=== PATIENT | female | born 1945 | race Caucasian/White ===

== ENCOUNTER → 2019-01-01 15:26 | Outpatient (CLI) | payer OTHER, SELFPAY ==
--- NOTE | 2019-01-01 15:28 | DI.MG.S_ITS ---
BILATERAL DIGITAL SCREENING MAMMOGRAM 3D/2D WITH CAD: 01/01/2019 CLINICAL: Routine screening. Comparison is made to exams dated: 03/01/2017 mammogram, 02/07/2015 mammogram, and 01/31/2015 mammogram - [facility]. The tissue of both breasts is heterogeneously dense. This may lower the sensitivity of mammography. Current study was also evaluated with a Computer Aided Detection (CAD) system. There are benign calcifications in both breasts. No significant masses, calcifications, or other findings are seen in either breast. There has been no significant interval change. IMPRESSION: There is no mammographic evidence of malignancy. A 1 year screening mammogram is recommended. This exam was interpreted at Station ID: [id number]. NOTE: For mammograms, a report in lay terms will be sent to the patient. Approximately 15% of breast malignancies will not be visualized mammographically. In the management of a palpable breast mass, a negative mammogram must not discourage biopsy of a clinically suspicious lesion. Electronically Signed By: Josh ochoa/conchis:01/01/2019 17:27:32 letter sent: Normal Exam ACR BI-RADS Category 2: Benign Finding(s) 3342F
== END ==
PROVIDERS: PCP Family Medicine; Visit Provider Family Medicine
DX: Z12.31 Encounter for screening mammogram for malignant neoplasm of breast (principal)
CPT/HCPCS: 77063; 77067

== ENCOUNTER → 2019-04-26 13:50 | Outpatient (CLI) | payer OTHER, SELFPAY ==
--- NOTE | 2019-04-26 13:52 | DI.RAD.S_ITS ---
PROCEDURE: XR FOOT RT MIN 3V INDICATIONS: right foot pain TECHNIQUE: 3 views of the foot were acquired. COMPARISON: None. FINDINGS: Bones: No fractures or dislocations. No suspicious bony lesions. The distal phalanges of the toes are not well seen on this study. Mild degenerative changes are present involving the 1st metatarsal phalangeal joint. Soft tissues: No tibiotalar joint effusion. Achilles tendon appears normal. IMPRESSION: Mild degenerative changes of the right foot. No fractures. Dictated by: Claudio Landry M.D. on 04/26/2019 at 14:44 Approved by: Claudio Landry M.D. on 04/26/2019 at 14:47
--- NOTE | 2019-04-26 13:52 | DI.MRI.S_ITS ---
PROCEDURE: MR KNEE LT WO CON INDICATIONS: Lateral left knee pain TECHNIQUE: Noncontrast sagittal PD fast spin echo and T2 fast spin echo with fat saturation, sagittal 3-D FLASH with fat saturation; coronal T1 spin echo and PD fast spin echo with fat saturation, and axial PD fast spin echo with fat saturation through the knee. COMPARISON: [facility], MR, KNEE WITHOUT CONTRAST, 03/04/2015, 7:52. FINDINGS: Image quality: Diagnostic. Bones and joint: There is no acute fracture or dislocation. No suspicious osseous lesions are evident. No significant knee joint effusion is identified. There is no Ayala's cyst. Heterogeneity and mild irregularity of the head articular cartilage is identified within the lateral and patellofemoral compartments. Small to moderate size full thickness defects of the hyaline articular cartilage are present with underlying degenerative/reactive marrow changes. Cruciate ligaments: The anterior and posterior cruciate ligaments are intact. However, the anterior cruciate ligament is enlarged and demonstrates mild increased signal. Menisci: No displaced tears of the medial and lateral menisci are evident. The posterior root ligaments are intact. Medial structures: The medial collateral ligament is intact. The semimembranosus tendon insertion is intact. The imaged portions of the pes anserinus tendons are unremarkable. No significant fluid is contained within the pes anserinus bursa. Lateral structures: The popliteal tendon is intact. The lateral collateral ligament proper (fibular collateral ligament) and the proximal tibiofibular ligaments are intact. The distal aspect of the biceps femoris tendon and the iliotibial band are intact. Anterior structures: The quadriceps and patellar tendons are intact. There is mild edema in the infrapatellar fat pad. IMPRESSION: 1. 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 2. Probable anterior cruciate ligament sprain. 3. No displaced meniscal tears are evident. 4. No definite tendinous abnormality. Dictated by: Claudio Landry M.D. on 04/26/2019 at 15:57 Approved by: Claudio Landry M.D. on 04/26/2019 at 16:01
== END ==
PROVIDERS: PCP Family Medicine; Visit Provider Family Medicine
DX: M25.562 Pain in left knee (principal); M94.262 Chondromalacia, left knee; M79.671 Pain in right foot; M19.071 Primary osteoarthritis, right ankle and foot
CPT/HCPCS: 73630; 73721

== ENCOUNTER 2019-11-27 09:34 | Day surgery (SDC) | payer OTHER, SELFPAY ==
[2019-11-27] VITALS (8 sets, daily range): BP systolic 112–146; BP diastolic 64–77; PULSE 67–84; RESP 12–16; TEMP 36.1–36.4; O2SAT 94–98
--- NOTE | 2019-11-27 | PATH_ITS ---
[facility] Accession Number: [id number] . 01 Material submitted: . PART A: colon - 40 CM COLON POLYP PART B: colon - CECAL AND ASCENDING POLYPS . 01 Clinical history: . SCREENING COLONOSCOPY . 02 Diagnosis: A. Colon Polyp at 40 cm, Biopsy: Tubular adenoma. . B. Cecum and Ascending Colon, Polyps, Biopsies: Fragments of tubular adenoma. [facility] 11/28/2019 0948 Local . 02 Electronically signed: . Jamie Erazo MD, PhD, Pathologist NPI- [id number] . 01 Gross description: . Part A: 40 CM COLON POLYP: Received in formalin are 2 fragment(s) of michel, soft tissue measuring 0.1 x 0.1 x 0.1 cm to 0.2 x 0.2 x 0.2 cm submitted entirely in 1 cassette(s) Part B: CECAL AND ASCENDING POLYPS: Received in formalin are 3 fragment(s) of michel, soft tissue measuring 0.1 x 0.1 x 0.1 cm to 0.3 x 0.2 x 0.2 cm submitted entirely in 1 cassette(s) /[facility] 11/27/2019 1910 Local . 02 Pathologist provided ICD-10: D12.0, D12.2, D12.6 . 02 CPT . 960391, [id number] Performed at: 01 [facility] [address], [place], [place] [id number] MD Jeffrey Fuentes MD Phone: [phone] Performed at: 02 [facility] [address] [place], [place] [id number] MD Genet Lebron MD Phone: [phone]
[2019-11-27] MEDS: SODIUM CHLORIDE 0.9% 1,000 ML 200 ML IV (09:47)
--- NOTE | 2019-11-27 10:11 | PM.HP.1 ---
History of Present Illness History of Present Illness Date Patient Seen: 11/27/19 Time Patient Seen: 10:11 Chief complaint: [id number] SCREENING COLONOSCOPY Narrative: The patient is a woman here for screening colonoscopy. Her last exam was 5 years ago. She had a half brother of colon cancer at age 51. She only took 1 dose of her prep because she finished defecating at 1:00 a.m. and it was clear. Patient History Medical History Ankle fracture, right (Resolved 1967) Arthritis (Acute) Basal cell carcinoma (BCC) of skin of nose (Resolved 2005) Chicken pox (Resolved ~1956) Colon polyps (Resolved 04/2005) Fibroids (Resolved 2001) Foot pain (Chronic 2014) Herpes (Chronic 1974) Measles (Resolved ~1955) Mumps (Resolved) Precancerous skin lesion (Resolved) Rheumatic fever (Resolved 1949) Tubular adenoma of colon (Resolved 04/2005) Wears glasses (Acute) Surgical History Anesthesia (Resolved) History of basal cell carcinoma (BCC) excision (Resolved 2005) History of colonoscopy with polypectomy (Resolved 04/2005) History of episiotomy (Resolved 1964) History of hip replacement (Resolved 08/30/12) History of tonsillectomy (Resolved) Status post hysterectomy (Resolved 2001) Status post knee surgery (Resolved 04/14/15) Family & Social History Family History Brother Colon cancer Type 2 diabetes mellitus Sister Age: 79 Non-Hodgkins lymphoma Grandmother Stroke Mother Diabetes mellitus Stroke Family/Other Drowning Father Cirrhosis of liver Social History: household members family lives independently Yes caregiver/support person No Tobacco & Substance use: Smoking Status Never smoker alcohol intake current Meds Home Medications and Allergies Home Medications Medication Instructions Recorded Confirmed Type pantoprazole 20 mg tablet,delayed 20 mg PO DAILY PRN 01/31/19 11/27/19 History release meclizine 12.5 mg tablet See Rx Instructions PO TID PRN #30 06/08/19 11/27/19 Rx tab acyclovir 400 mg PO TIDP PRN 11/27/19 11/27/19 History Allergies Allergy/AdvReac Type Severity Reaction Status Date / Time codeine [CODEINE] AdvReac Mild nausea & Verified 11/27/19 09:54 terrible nightmares hydrocodone [HYDROCODONE] AdvReac Mild Nausea/vomi Verified 11/27/19 09:54 ting oxycodone AdvReac Mild Vomiting Verified 11/27/19 09:54 Review of Systems Review of Systems ROS Unobtainable: All systems reviewed & are unremarkable except as noted in HPI and below Cardiovascular Comments: History of rheumatic fever as a child Exam Narrative Exam Narrative: Pleasant cooperative patient no apparent distress. Lungs are clear to auscultation. No rales or rhonchi. Heart regular rate and rhythm no murmur gallop. Abdomen is soft nontender without mass. No obvious hernias. Patient is alert and oriented x3. Assessment & Plan Assessment & Plan narrative: The patient for a screening colonoscopy. I have discussed the procedure with them. Risks of bleeding, perforation which would necessitate major operation, failure to find remove all lesions, the potential tattoo were all discussed. All questions were answered. They wished to proceed.
--- NOTE | 2019-11-27 10:15 | PM.PREOP ---
Pre-operative Note Interval Note History & Physical reviewed/Exam performed by Physician: Yes Changes to H&P: No H&P completed within 30 days and has changed as indicated here:: Patient reported she only took 1 of the 2 doses of bowel prep. I explained that hopefully that will be adequate but it may not be ASA Class (for procedural sedation): I
[2019-11-27] MEDS: ONDANSETRON 4 MG/2 ML INJ IV (10:16)
[2019-11-27] MEDS: fentaNYL 250 MCG/5 ML INJ IV (10:45)
[2019-11-27] MEDS: MIDAZOLAM 5 MG/5 ML VIAL IV (10:45)
--- NOTE | 2019-11-27 11:04 | PM.OP.ENDO ---
Operative Date/Time/Diagnoses Date of procedure: 11/27/19 Time of procedure: 11:04 Pre-op diagnosis: Family history of colon cancer Post-op diagnosis: same Procedure & Clinicians Study performed: Colonoscopy with cold biopsy Same procedure as scheduled: Yes Indications: Screening. Last colonoscopy 5 years ago Surgeon: Servando Thapa Procedure Notes SCOAP/Timeout: Performed Procedure in detail: The patient was placed in the left lateral decubitus position and underwent IV sedation directed by the surgeon consisting of fentanyl and Versed. Digital exam was unremarkable. The scope was inserted and advanced through the rectum into the sigmoid, descending, transverse, and ascending colon. The patient had extensive sigmoid diverticulosis with some narrowing. There was also tortuosity in this region. A stiffener and pressure had to be applied to ultimately make our way to the cecum. Three polyps were identified on our way into the cecum. These were all removed with cold biopsy forceps. They were located at 40 cm, and the other 2 were in the ascending colon and cecum and these were placed in the same specimen container. The cecum was reached identified by the ileocecal valve and the appendiceal opening. The ileocecal valve was successfully cannulated. The terminal ileum was normal in appearance. The scope was gradually brought out. No other Polyps were found. The scope ultimately was retroflexed in the rectum. The appearance was remarkable for internal hemorrhoids without ulceration. They were very near the anal verge.. The scope was slowly removed and the patient tolerated the procedure well. The prep was very good. Scope withdrawal time: 7-1/2 minutes Sedation minutes: 42 Findings: diverticulosis, internal hemorrhoids and polyp Specimen(s): other (Polyps) Complications: none Post-procedure Recommendations: Colonscopy in 5 years (Due to family history of colon cancer and personal history of polyps) Follow up: as needed Disposition: PACU
== END 2019-11-27 12:09 | disposition home or self-care (01) ==
PROVIDERS: PCP Family Medicine; Visit Provider Specialist
PROC: 0DJD8ZZ Inspection of Lower Intestinal Tract, Via Natural or Artificial Opening Endoscopic (ICD-10-PCS; CPT 45378; principal; 2019-11-27 10:45)
DX: Z12.11 Encounter for screening for malignant neoplasm of colon (principal); Z86.010 Personal history of colon polyps; Z80.0 Family history of malignant neoplasm of digestive organs; K57.30 Diverticulosis of large intestine without perforation or abscess without bleeding; K64.8 Other hemorrhoids; D12.0 Benign neoplasm of cecum; D12.2 Benign neoplasm of ascending colon; D12.6 Benign neoplasm of colon, unspecified
CPT/HCPCS: 45380; 99152; 99153; J2250; J2405; J3010

== ENCOUNTER → 2019-12-04 16:30 | Outpatient (CLI) | payer OTHER, SELFPAY ==
--- NOTE | 2019-12-04 16:32 | DI.RAD.S_ITS ---
PROCEDURE: XR ACUTE ABDOMEN SERIES INDICATIONS: abd pain ?fever distention post colonoscopy TECHNIQUE: One view chest and two views of the abdomen were acquired. COMPARISON: None. FINDINGS: Surgical changes and devices: Status post left total hip arthroplasty without hardware complication in the visualized portions. Chest: Lungs are clear. Heart size is normal. No pleural effusions. No pneumoperitoneum. Abdomen: Bowel gas pattern is normal. No suspicious calcifications. Visualized solid organ contours appear normal. Bones: No suspicious bony lesions. Sclerosis of the pubic symphysis bilaterally. Lower lumbar spondylosis. IMPRESSION: Negative acute abdominal series. Dictated by: Josh Rose M.D. on 12/04/2019 at 17:53 Approved by: Josh Rose M.D. on 12/04/2019 at 17:57
[2019-12-04 17:07] LABS: Add Manual Diff / Slide Review NO; Basophils Absolute Auto 0 /uL (0-100); Basophils Percent Auto 0.7 % (0-2); Eosinophils Absolute Auto 100 /uL (0-450); Hematocrit 40.2 % (36-46); Hemoglobin 13.7 g/dL (12.0-16.0); Lymphocytes Absolute Auto 1500 /uL (1100-4500); Lymphocytes Percent Auto 24.9 % (25-40); Mean Corpuscular HGB Conc 33.9 % (30-36); Mean Corpuscular Hemoglobin 29.2 PG (26-34); Mean Corpuscular Volume 86.1 fL (80-100); Monocytes Absolute Auto 500 /uL (0-900); Monocytes Percent Auto 8.4 % (3-14); Neutrophils Absolute Auto 3700 /uL (1500-7000); Platelet Count 277 X10^3/uL (150-400); Red Blood Cell Count 4.67 X10^6/uL (4.0-5.2); Red Cell Distribution Width 13.9 % (11.6-14.8); White Blood Cell Count 5.8 X10^3/uL (4.5-11.0)
== END ==
PROVIDERS: PCP Family Medicine; Visit Provider Specialist
DX: R10.9 Unspecified abdominal pain (principal); R14.0 Abdominal distension (gaseous); R19.7 Diarrhea, unspecified; M47.816 Spondylosis without myelopathy or radiculopathy, lumbar region; Z98.890 Other specified postprocedural states; Z96.642 Presence of left artificial hip joint
CPT/HCPCS: 36415; 74022; 85025; 99212

== ENCOUNTER → 2019-12-05 09:09 | Outpatient (CLI) | payer OTHER, SELFPAY ==
[2019-12-05 11:24] LABS: Adenovirus F 40/41 Not Detected (Not Detect); Astrovirus Not Detected (Not Detect); Campylobacter Not Detected (Not Detect); Clostridium difficile toxin AB Not Detected (Not Detect); Cryptosporidium Not Detected (Not Detect); Cyclospora cayetanensis Not Detected (Not Detect); Entamoeba histolytica Not Detected (Not Detect); Enteroaggregative E.coli Not Detected (Not Detect); Enteropathogenic E.coli Not Detected (Not Detect); Enterotoxigenic E.coli It/st Not Detected (Not Detect); Giardia lamblia Not Detected (Not Detect); Norovirus GI/GII Not Detected (Not Detect); Plesiomonsa shigelloides Not Detected (Not Detect); Rotavirus A Not Detected (Not Detect); Salmonella Not Detected (Not Detect); Sapovirus Not Detected (Not Detect); Shiga-like toxin-prod E.coli Not Detected (Not Detect); Shigella/Enteroinvasive E.coli Not Detected (Not Detect); Vibrio Not Detected (Not Detect); Vibrio cholerae Not Detected (Not Detect); Yersinia enterocolitica Not Detected (Not Detect)
== END ==
PROVIDERS: PCP Family Medicine; Visit Provider Specialist
DX: R10.9 Unspecified abdominal pain (principal); R14.0 Abdominal distension (gaseous); R19.7 Diarrhea, unspecified; Z98.890 Other specified postprocedural states
CPT/HCPCS: 87507

== ENCOUNTER 2020-04-30 13:45 | Outpatient (RCR) | payer OTHER, SELFPAY ==
--- NOTE | 2020-03-24 18:02 | PT.OIE ---
Current Diagnoses Pelvic muscle wasting (03/24/20) Unspecified dyspareunia (03/24/20) Past Medical History (Last Reviewed 12/04/19 @ 17:03 by Servando Thapa MD) Ankle fracture, right (Resolved 1967) Arthritis (Acute) Basal cell carcinoma (BCC) of skin of nose (Resolved 2005) Chicken pox (Resolved ~1956) Colon polyps (Resolved 04/2005) Fibroids (Resolved 2001) Foot pain (Chronic 2014) Herpes (Chronic 1974) Measles (Resolved ~1955) Mumps (Resolved) Precancerous skin lesion (Resolved) Rheumatic fever (Resolved 1949) Tubular adenoma of colon (Resolved 04/2005) Wears glasses (Acute) Past Surgical History (Last Reviewed 12/04/19 @ 17:03 by Servando Thapa MD) Anesthesia (Resolved) History of basal cell carcinoma (BCC) excision (Resolved 2005) History of colonoscopy with polypectomy (Resolved 04/2005) History of episiotomy (Resolved 1964) History of hip replacement (Resolved 08/30/12) History of tonsillectomy (Resolved) Status post hysterectomy (Resolved 2001) Status post knee surgery (Resolved 04/14/15) Visit Care Team Role Provider Type Henrietta Parry MD Primary Care Provider Physician Specialty: Family Practice Address: [address] [place] [address], [facility] Email: [email or web address] Leila Stewart MD Attending Provider Physician Referring Provider Specialty: [employer] Address: [address] [place] [address], [facility] Email: Physical Therapy Initial Evaluation PT-OP-A Visit Information Start: 03/24/20 12:46 Freq: Status: Active Protocol: Document 03/24/20 12:56 [facility] (Rec: 03/24/20 13:13 [facility] [id number]) Out-Patient Physical Therapy Visit Information Visit Information Visit Type Initial Evaluation Visit Start Time 13:00 Visit Stop Time 13:45 Total Visit Minutes 45 Visit Number 1 Evaluation Information Evaluation Date 03/24/20 PT-OP-B Current Condition Start: 03/24/20 12:46 Freq: Status: Active Protocol: Document 03/24/20 12:56 [facility] (Rec: 03/24/20 13:13 [facility] [id number]) Current Condition History of Current Condition Onset Date 40 years ago Current Complaints vaginal pain with intercourse History of Current Condition Yamilex reports she has been experiecing pain with intercourse since her hysterectomy 40 years ago. She has been using estodial x 3-4 weeks now but prefers Premerin so may switch back to that. Yamilex reports that her and her have custody of their 8 year old grand daughter. They dont have intercourse often due to this. She doesn't use the estrodial every day. Pt reports It feel like there is scar tissue and it gets raw inside the right side of the vagina at the front of the pubic bone. 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 Pain began following the hysteroctomy. In 2011 she had the left hip replaced and this did effect positions that felt more compfortable to her during intercourse. She currently walks 4.5 miles per day every week day. Treatment Goals Patient/Caregiver Goals Goals include helping to reduce pain enabling Yamilex to be intimate with her without pain. Current Functional Impairments (Reported) Functional Limitations- Recreation/ pain with intercourse, limited Hobbies ROM after her left hip replacement which limits positions for intercourse PT-OP-C Subjective Start: 03/24/20 12:46 Freq: Status: Active Protocol: Document 03/24/20 17:36 [facility] (Rec: 03/24/20 17:59 [facility] [id number]) OP-PT Pain Assessment Location anterior pelvic floor Pain Location Details pain in the anterior pelvic floor Intensity 8 Scale Used Numeric (1 - 10) Description Aching,Stabbing Description- Other Raw tissue feeling Pain Duration pain with intercourse Other Pain Aggravating Factors Pt expereinced 6/10 pain with palpation in the pelvic clock from 9-12 PT-OP-F Manual Assessment Start: 03/24/20 12:46 Freq: Status: Active Protocol: Document 03/24/20 17:36 [facility] (Rec: 03/24/20 17:59 [facility] [id number]) Manual Assessments Soft Tissue Assessment Soft Tissue Mobility Assessment scar tissue tightness noted on the right side of urethra and in the pubococcygeus on the right from 9-12 MFR in the suprapubic fascia on the right side with tenderness to palpation PT-OP-I Pelvic Floor Start: 03/24/20 12:46 Freq: Status: Active Protocol: Document 03/24/20 17:36 [facility] (Rec: 03/24/20 17:59 [facility] [id number]) Pelvic Floor Assessment Urine Pelvic Floor Surgery No Pelvic Clock Pelvic Clock 12-3 Atrophy Pelvic Clock 9-12 Guarding,Tenderness Contraction Ability Voluntary Contraction Moderate Voluntary Relaxation Moderate Manual Muscle Testing Left 3 Manual Muscle Testing Right 3 Manual Muscle Testing Anterior 2 Manual Muscle Testing Posterior 4 Muscle Endurance (Seconds) 5 PT-OP-J Posture/Palpation/Skin Start: 03/24/20 12:46 Freq: Status: Active Protocol: Document 03/24/20 17:36 [facility] (Rec: 03/24/20 17:59 [facility] [id number]) Palpation Assessment Location suprapubic fascia R Palpation Location right side of the suprapubic fascia Palpation Findings Soft Tissue Tightness, Tenderness Palpation Details Myofascial restrictions felt in the suprapubic fascia on the right side of the abdominal wall, tenderness here to palpation pelvic clock 9-12 Palpation Location pelvic clock 9-12 in the pubococcygeus Palpation Findings Spasm,Muscle Guarding, Tenderness PT-OP-Q Treatments Start: 03/24/20 12:46 Freq: Status: Active Protocol: Document 03/24/20 17:36 [facility] (Rec: 03/24/20 17:59 [facility] [id number]) Therapeutic Exercises Supine Exercises 1 Supine Exercise Name pelvic floor isolation with imagery of the anterior pelvci floor Side bilateral Reps/Minutes 5 second hold time with 10 second relaxation Self-Care/Home Management Treatment Education Patient Education Home Exercise Program Other Education Yamilex was given a size medium dilator today and was educated in self massage of the right lateral wall of the pubococcygeus. Special care was given to avoid the area of the urethra and Yamilex understood this well. She was also educted to keep this massage to 2-3 minutes to start with. She was also given information on Julva cream to use to help with tissue irritation as she is not using the estrogen cream every day. PT-OP-T Assessment and Plan Start: 03/24/20 12:46 Freq: Status: Active Protocol: Document 03/24/20 17:36 [facility] (Rec: 03/24/20 17:59 [facility] [email or web address]) Physical Therapy Assessment Rehab Potential Rehabilitation Potential Excellent Evaluation Complexity Number of Personal Factors/Comorbidities 0 Number of Body Systems Impaired 1-2 Clinical Presentation at Evaluation Stable Impairments Impairments Pain,Soft Tissue Mobility, Strength Goals Three Impairment Myofascial restrictions in the suprapubic fasica of the abdominal wall R Alf Goal (LTG) With manual therapy Yamilex is no longer tender to palpation over the right suprapubic fascia and R pubococcygeus musculature LTG Duration 8 weeks Two Impairment Guarding of the levator ani on the pelvic clock from 9-12 Short Term Goal (STG) Pt is educated in self release of the levator ani using a dilator and is able to reduce tension in the pelvci floor prior to intercourse STG Duration 4 weeks One Impairment anterior pelvic Pain with intercourse Spool Maker Goal (LTG) With self massage techniques, manual therpay techniques, stretches for the pelvic floor , and anterior wall strengthening Yamilex is able to decrease c/o pain with intercourse with her LTG Duration 8 weeks Assessment Summary Assessment Yamilex is a 75 year old female who presents to physical therapy today with symptoms of pain with intercourse that have been persistent since her hysterectomy at age 42. She underwent a L EDISON in 2011 and this has made certains positions more difficult to get into and she avoids certain positions because of her hip. Her pain is specific and Yamilex describes her pain as being right sided anterior pain on the inside region of her pubic bone. She notes her tissue will feel raw and is very painful with intercourse. With examination today I was able to palpate this painful region for her and reproduce her pain. She has pain from 9-12 on the pelvic clock with guarding in the right side of the pubocuccygeus. There is also some scar tissue on the right side of the urethra and palpation here was painful. Yamilex has tenderness in the suprapubic fascia on the right side and there are myofascial restrictions here as well. Her strength of levator ani contraction was less in the anterior wall than other parts of her pelvci floor. I started Ymailex with a size medium dilator today for self release of her levator ani. She was able to try this her self as I gave her instructions and could feel the muscles stretching. Care was given to avoid the urethral region and Yamilex understood this as well as not pushing into pain. Treatment will also focus on manual scar tissue release in the right side of the levator ani and right side of the pubic pone. MFR will be performed in the suprapubic fascial region. Treatment will include stretches for the pelvic floor. Further evaluation of hip ROM needs to be assessed next visit. Pelvic floor strengthening for the anterior wall of the levator ani will be included. Yamilex is a good candidate for PT Physical Therapy Plan Frequency and Duration Frequency of Treatment 1x/Week Duration of Treatment 8 Plan of Care Start Date 03/24/20 Plan of Care End Date 05/19/20 Therapeutic Interventions Therapeutic Interventions Home Exercise Program,Manual Therapy,Neuromuscular Re- education,Self-Care/Home Management,Soft Tissue Mobilization,Therapeutic Exercises Modalities Biofeedback Next Visit Focus/Plan Next Note Type Treatment Note Next Visit Plan Add in stretches for the pelvic floor and abdominal wall next visit, MFR over the abdomen and right side of the pubococcygeus.
--- NOTE | 2020-03-24 18:03 | PT.OPPOC ---
Physical, Occupational & Speech Therapy At [facility] Current Diagnoses Pelvic muscle wasting (03/24/20) Unspecified dyspareunia (03/24/20) Visit Care Team Role Provider Type Henrietta Parry MD Primary Care Provider Physician Specialty: Family Practice Address: [address] [place] [address], [place], [address] Email: [email or web address] Leila Stewart MD Attending Provider Physician Referring Provider Specialty: SPLUNK ARCHITECT Address: [address] [place] [address], [facility] Email: Plan Of Care PT-OP-T Assessment and Plan Start: 03/24/20 12:46 Freq: Status: Active Protocol: Document 03/24/20 17:36 [facility] (Rec: 03/24/20 17:59 [facility] [id number]) Physical Therapy Assessment Rehab Potential Rehabilitation Potential Excellent Evaluation Complexity Number of Personal Factors/Comorbidities 0 Number of Body Systems Impaired 1-2 Clinical Presentation at Evaluation Stable Impairments Impairments Pain,Soft Tissue Mobility, Strength Goals Three Impairment Myofascial restrictions in the suprapubic fasica of the abdominal wall R Hospital Product Specialist Goal (LTG) With manual therapy Yamilex is no longer tender to palpation over the right suprapubic fascia and R pubococcygeus musculature LTG Duration 8 weeks Two Impairment Guarding of the levator ani on the pelvic clock from 9-12 Short Term Goal (STG) Pt is educated in self release of the levator ani using a dilator and is able to reduce tension in the pelvic floor prior to intercourse STG Duration 4 weeks One Impairment anterior pelvic Pain with intercourse Usp Goal (LTG) With self massage techniques, manual therapy techniques, stretches for the pelvic floor , and anterior wall strengthening Yamilex is able to decrease c/o pain with intercourse with her LTG Duration 8 weeks Assessment Summary Assessment Yamilex is a 75 year old female who presents to physical therapy today with symptoms of pain with intercourse that have been persistent since her hysterectomy at age 42. She underwent a L EDISON in 2011 and this has made certain positions more difficult to get into and she avoids certain positions because of her hip. Her pain is specific and Yamilex describes her pain as being right sided anterior pain on the inside region of her pubic bone. She notes her tissue will feel raw and is very painful with intercourse. With examination today I was able to palpate this painful region for her and reproduce her pain. She has pain from 9-12 on the pelvic clock with guarding in the right side of the pubococcygeus. There is also some scar tissue on the right side of the urethra and palpation here was painful. Yamilex has tenderness in the suprapubic fascia on the right side and there are myofascial restrictions here as well. Her strength of levator ani contraction was less in the anterior wall than other parts of her pelvic floor. I started Yamilex with a size medium dilator today for self release of her levator ani. She was able to try this her self as I gave her instructions and could feel the muscles stretching. Care was given to avoid the urethral region and Yamilex understood this as well as not pushing into pain. Treatment will also focus on manual scar tissue release in the right side of the levator ani and right side of the pubic pone. MFR will be performed in the suprapubic fascial region. Treatment will include stretches for the pelvic floor. Further evaluation of hip ROM needs to be assessed next visit. Pelvic floor strengthening for the anterior wall of the levator ani will be included. Yamilex is a good candidate for PT Physical Therapy Plan Frequency and Duration Frequency of Treatment 1x/Week Duration of Treatment 8 Plan of Care Start Date 03/24/20 Plan of Care End Date 05/19/20 Therapeutic Interventions Therapeutic Interventions Home Exercise Program,Manual Therapy,Neuromuscular Re- education,Self-Care/Home Management,Soft Tissue Mobilization,Therapeutic Exercises Modalities Biofeedback Next Visit Focus/Plan Next Note Type Treatment Note Next Visit Plan Add in stretches for the pelvic floor and abdominal wall next visit, MFR over the abdomen and right side of the pubococcygeus. Plan of Care Dates Plan of Care Start Date 03/24/20 Plan of Care End Date 05/19/20 Electronically Signed by: Dilia Fernandez, PT 03/24/20 [id number] Please Sign and Return: I have reviewed this Plan of Care and certify that the skilled therapy services above are required to meet the patient?s needs. Physician Signature Date Printed Name and Credentials Clinical Instructor Signature Printed Name and Credentials
--- NOTE | 2020-03-24 18:05 | PT.OPPOC ---
Physical, Occupational & Speech Therapy At [facility] Current Diagnoses Pelvic muscle wasting (03/24/20) Unspecified dyspareunia (03/24/20) Visit Care Team Role Provider Type Henrietta Parry MD Primary Care Provider Physician Specialty: Family Practice Address: [address] [place] [address], [place], [address] Email: [email or web address] Leila Stewart MD Attending Provider Physician Referring Provider Specialty: ASSEMBLY MACHINE TOOL SETTER Address: [address] [place] [address], [facility] Email: Plan Of Care PT-OP-T Assessment and Plan Start: 03/24/20 12:46 Freq: Status: Active Protocol: Document 03/24/20 17:36 [facility] (Rec: 03/24/20 17:59 [facility] [email or web address]) Physical Therapy Assessment Rehab Potential Rehabilitation Potential Excellent Evaluation Complexity Number of Personal Factors/Comorbidities 0 Number of Body Systems Impaired 1-2 Clinical Presentation at Evaluation Stable Impairments Impairments Pain,Soft Tissue Mobility, Strength Goals Three Impairment Myofascial restrictions in the suprapubic fasica of the abdominal wall R Catalogue Clerk Goal (LTG) With manual therapy Yamilex is no longer tender to palpation over the right suprapubic fascia and R pubococcygeus musculature LTG Duration 8 weeks Two Impairment Guarding of the levator ani on the pelvic clock from 9-12 Short Term Goal (STG) Pt is educated in self release of the levator ani using a dilator and is able to reduce tension in the pelvic floor prior to intercourse STG Duration 4 weeks One Impairment anterior pelvic Pain with intercourse Nursing Home Goal (LTG) With self massage techniques, manual therapy techniques, stretches for the pelvic floor , and anterior wall strengthening Yamilex is able to decrease c/o pain with intercourse with her LTG Duration 8 weeks Assessment Summary Assessment Yamilex is a 75 year old female who presents to physical therapy today with symptoms of pain with intercourse that have been persistent since her hysterectomy at age 42. She underwent a L EDISON in 2011 and this has made certain positions more difficult to get into and she avoids certain positions because of her hip. Her pain is specific and Yamilex describes her pain as being right sided anterior pain on the inside region of her pubic bone. She notes her tissue will feel raw and is very painful with intercourse. With examination today I was able to palpate this painful region for her and reproduce her pain. She has pain from 9-12 on the pelvic clock with guarding in the right side of the pubocuccygeus. There is also some scar tissue on the right side of the urethra and palpation here was painful. Yamilex has tenderness in the suprapubic fascia on the right side and there are myofascial restrictions here as well. Her strength of levator ani contraction was less in the anterior wall than other parts of her pelvic floor. I started Yamilex with a size medium dilator today for self release of her levator ani. She was able to try this her self as I gave her instructions and could feel the muscles stretching. Care was given to avoid the urethral region and Yamilex understood this as well as not pushing into pain. Treatment will also focus on manual scar tissue release in the right side of the levator ani and right side of the pubic pone. MFR will be performed in the suprapubic fascial region. Treatment will include stretches for the pelvic floor. Further evaluation of hip ROM needs to be assessed next visit. Pelvic floor strengthening for the anterior wall of the levator ani will be included. Yamilex is a good candidate for PT Physical Therapy Plan Frequency and Duration Frequency of Treatment 1x/Week Duration of Treatment 8 Plan of Care Start Date 03/24/20 Plan of Care End Date 05/19/20 Therapeutic Interventions Therapeutic Interventions Home Exercise Program,Manual Therapy,Neuromuscular Re- education,Self-Care/Home Management,Soft Tissue Mobilization,Therapeutic Exercises Modalities Biofeedback Next Visit Focus/Plan Next Note Type Treatment Note Next Visit Plan Add in stretches for the pelvic floor and abdominal wall next visit, MFR over the abdomen and right side of the pubococcygeus. Plan of Care Dates Plan of Care Start Date 03/24/20 Plan of Care End Date 05/19/20 Electronically Signed by: Dilia Fernandez, PT 03/24/20 0296 Please Sign and Return: I have reviewed this Plan of Care and certify that the skilled therapy services above are required to meet the patient?s needs. Physician Signature Date Printed Name and Credentials Clinical Instructor Signature Printed Name and Credentials
--- NOTE | 2020-04-02 16:04 | PT.OTN ---
Current Diagnoses Pelvic muscle wasting (04/02/20) Unspecified dyspareunia (04/02/20) Physical Therapy Treatment Note PT-OP-A Visit Information Start: 03/24/20 12:46 Freq: Status: Active Protocol: Document 04/02/20 08:14 [facility] (Rec: 04/02/20 11:18 [facility] [id number]) Out-Patient Physical Therapy Visit Information Visit Information Visit Type Treatment Note Visit Start Time 08:15 Visit Stop Time 09:00 Total Visit Minutes 45 Visit Number 2 PT-OP-B Current Condition Start: 03/24/20 12:46 Freq: Status: Active Protocol: Document 03/24/20 12:56 [facility] (Rec: 03/24/20 13:13 [facility] [id number]) Current Condition History of Current Condition Onset Date 40 years ago Current Complaints vaginal pain with intercourse History of Current Condition Yamilex reports she has been experiecing pain with intercourse since her hysterectomy 40 years ago. She has been using estodial x 3-4 weeks now but prefers Premerin so may switch back to that. Yamilex reports that her and her have custody of their 8 year old grand daughter. They dont have intercourse often due to this. She doesn't use the estrodial every day. Pt reports It feel like there is scar tissue and it gets raw inside the right side of the vagina at the front of the pubic bone. 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 Pain began following the hysteroctomy. In 2011 she had the left hip replaced and this did effect positions that felt more compfortable to her during intercourse. She currently walks 4.5 miles per day every week day. Treatment Goals Patient/Caregiver Goals Goals include helping to reduce pain enabling Yamilex to be intimate with her without pain. Current Functional Impairments (Reported) Functional Limitations- Recreation/ pain with intercourse, limited Hobbies ROM after her left hip replacement which limits positions for intercourse PT-OP-C Subjective Start: 03/24/20 12:46 Freq: Status: Active Protocol: Document 04/02/20 08:14 [facility] (Rec: 04/02/20 11:18 [facility] [id number]) OP-PT Subjective Patient Comments Patient Comments Feels like she may have over did it with the dilator. Didnt feel the discomfort until the next day, listened to her body, pelvic floor contractions are getting stronger. PT-OP-F Manual Assessment Start: 03/24/20 12:46 Freq: Status: Active Protocol: Document 03/24/20 17:36 [facility] (Rec: 03/24/20 17:59 [facility] [email or web address]) Manual Assessments Soft Tissue Assessment Soft Tissue Mobility Assessment scar tissue tightness noted on the right side of urethra and in the pubococcygeus on the right from 9-12 MFR in the suprapubic fascia on the right side with tenderness to palpation PT-OP-I Pelvic Floor Start: 03/24/20 12:46 Freq: Status: Active Protocol: Document 03/24/20 17:36 [facility] (Rec: 03/24/20 17:59 [facility] [email or web address]) Pelvic Floor Assessment Urine Pelvic Floor Surgery No Pelvic Clock Pelvic Clock 12-3 Atrophy Pelvic Clock 9-12 Guarding,Tenderness Contraction Ability Voluntary Contraction Moderate Voluntary Relaxation Moderate Manual Muscle Testing Left 3 Manual Muscle Testing Right 3 Manual Muscle Testing Anterior 2 Manual Muscle Testing Posterior 4 Muscle Endurance (Seconds) 5 PT-OP-J Posture/Palpation/Skin Start: 03/24/20 12:46 Freq: Status: Active Protocol: Document 03/24/20 17:36 [facility] (Rec: 03/24/20 17:59 [facility] [email or web address]) Palpation Assessment Location suprapubic fascia R Palpation Location right side of the suprapubic fascia Palpation Findings Soft Tissue Tightness, Tenderness Palpation Details Myofascial restrictions felt in the suprapubic fascia on the right side of the abdominal wall, tenderness here to palpation pelvic clock 9-12 Palpation Location pelvic clock 9-12 in the pubococcygeus Palpation Findings Spasm,Muscle Guarding, Tenderness PT-OP-Q Treatments Start: 03/24/20 12:46 Freq: Status: Active Protocol: Document 04/02/20 12:47 [facility] (Rec: 04/02/20 12:53 [facility] [email or web address]) Therapeutic Exercises Supine Exercises 1 Supine Exercise Name pelvic floor isolation with imagery of the anterior pelvci floor Side bilateral Reps/Minutes 5 second hold time with 10 second relaxation Comments pt to start increasing to 10 second hold time Other Exercises 2 Other Exercise Name iliopsoas mera test position Reps/Minutes holding 1-2 minutes 1 Other Exercise Name sphinx stretch Reps/Minutes x 5 Comments with cues to relax the abdominal wall Manual Therapy Treatment Soft Tissue Mobilization 3 Body Location mobilizations of the bladder in a superior directions 2 Body Location internal release of the right pubococcygeus, 1 Body Location MFR over the anterior abdominal wall, right sided suprapubic fascia PT-OP-T Assessment and Plan Start: 03/24/20 12:46 Freq: Status: Active Protocol: Document 04/02/20 12:47 [facility] (Rec: 04/02/20 12:53 [facility] [email or web address]) Physical Therapy Assessment Assessment Summary Assessment pt given idea to elevate and tip pelvis as this position may move the bladder with intercourse. The right anterior section of the pubococcygues felt better to her with the bladder mobilized superiorly. Decreased tenderness in the lateral talavera of the pelvic floor today. Pt to try using coconut oil to help with tissue sensitivity prior to intercourse Physical Therapy Plan Frequency and Duration Frequency of Treatment 1x/Week Duration of Treatment 8 Plan of Care Start Date 03/24/20 Plan of Care End Date 05/19/20 Therapeutic Interventions Therapeutic Interventions Home Exercise Program,Manual Therapy,Neuromuscular Re- education,Self-Care/Home Management,Soft Tissue Mobilization,Therapeutic Exercises Modalities Biofeedback Next Visit Focus/Plan Next Note Type Treatment Note Next Visit Plan review stretches next vist, assess coconut oil for lubrication, begin EMG biofeedback for endurance training of the pelvic floor
--- NOTE | 2020-04-09 12:25 | PT.OTN ---
Current Diagnoses Pelvic muscle wasting (04/09/20) Unspecified dyspareunia (04/09/20) Physical Therapy Treatment Note PT-OP-A Visit Information Start: 03/24/20 12:46 Freq: Status: Active Protocol: Document 04/09/20 09:06 [facility] (Rec: 04/09/20 09:44 [facility] [id number]) Out-Patient Physical Therapy Visit Information Visit Information Visit Type Treatment Note Visit Start Time 09:05 Visit Stop Time 09:45 Total Visit Minutes 40 Visit Number 3 PT-OP-B Current Condition Start: 03/24/20 12:46 Freq: Status: Active Protocol: Document 03/24/20 12:56 [facility] (Rec: 03/24/20 13:13 [facility] [id number]) Current Condition History of Current Condition Onset Date 40 years ago Current Complaints vaginal pain with intercourse History of Current Condition Yamilex reports she has been experiecing pain with intercourse since her hysterectomy 40 years ago. She has been using estodial x 3-4 weeks now but prefers Premerin so may switch back to that. Yamilex reports that her and her have custody of their 8 year old grand daughter. They dont have intercourse often due to this. She doesn't use the estrodial every day. Pt reports It feel like there is scar tissue and it gets raw inside the right side of the vagina at the front of the pubic bone. 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 Pain began following the hysteroctomy. In 2011 she had the left hip replaced and this did effect positions that felt more compfortable to her during intercourse. She currently walks 4.5 miles per day every week day. Treatment Goals Patient/Caregiver Goals Goals include helping to reduce pain enabling Yamilex to be intimate with her without pain. Current Functional Impairments (Reported) Functional Limitations- Recreation/ pain with intercourse, limited Hobbies ROM after her left hip replacement which limits positions for intercourse PT-OP-C Subjective Start: 03/24/20 12:46 Freq: Status: Active Protocol: Document 04/09/20 09:06 [facility] (Rec: 04/09/20 09:44 [facility] [id number]) OP-PT Subjective Patient Comments Patient Comments Pt reports she has been busy so hasn't had time to do all her exercises Has been using a self massage tool. Pt brings in coconut oil today for masage treatment. It didn 't sting with the coconut oil. PT-OP-F Manual Assessment Start: 03/24/20 12:46 Freq: Status: Active Protocol: Document 03/24/20 17:36 [facility] (Rec: 03/24/20 17:59 [facility] [email or web address]) Manual Assessments Soft Tissue Assessment Soft Tissue Mobility Assessment scar tissue tightness noted on the right side of urethra and in the pubococcygeus on the right from 9-12 MFR in the suprapubic fascia on the right side with tenderness to palpation PT-OP-I Pelvic Floor Start: 03/24/20 12:46 Freq: Status: Active Protocol: Document 03/24/20 17:36 [facility] (Rec: 03/24/20 17:59 [facility] [email or web address]) Pelvic Floor Assessment Urine Pelvic Floor Surgery No Pelvic Clock Pelvic Clock 12-3 Atrophy Pelvic Clock 9-12 Guarding,Tenderness Contraction Ability Voluntary Contraction Moderate Voluntary Relaxation Moderate Manual Muscle Testing Left 3 Manual Muscle Testing Right 3 Manual Muscle Testing Anterior 2 Manual Muscle Testing Posterior 4 Muscle Endurance (Seconds) 5 PT-OP-J Posture/Palpation/Skin Start: 03/24/20 12:46 Freq: Status: Active Protocol: Document 03/24/20 17:36 [facility] (Rec: 03/24/20 17:59 [facility] [email or web address]) Palpation Assessment Location suprapubic fascia R Palpation Location right side of the suprapubic fascia Palpation Findings Soft Tissue Tightness, Tenderness Palpation Details Myofascial restrictions felt in the suprapubic fascia on the right side of the abdominal wall, tenderness here to palpation pelvic clock 9-12 Palpation Location pelvic clock 9-12 in the pubococcygeus Palpation Findings Spasm,Muscle Guarding, Tenderness PT-OP-Q Treatments Start: 03/24/20 12:46 Freq: Status: Active Protocol: Document 04/09/20 12:22 [facility] (Rec: 04/09/20 12:25 [facility] [id number]) Therapeutic Exercises Supine Exercises 1 Supine Exercise Name pelvic floor isolation with imagery of the anterior pelvci floor Side bilateral Reps/Minutes 10 second hold time with 10 second relaxation Comments worked with EMG biofeedback today for neuroawareness of the pelvic floor Manual Therapy Treatment Soft Tissue Mobilization 3 Body Location mobilizations of the bladder in a superior directions 2 Body Location internal release of the right pubococcygeus, 1 Body Location MFR over the anterior abdominal wall, right sided suprapubic fascia PT-OP-T Assessment and Plan Start: 03/24/20 12:46 Freq: Status: Active Protocol: Document 04/09/20 12:22 [facility] (Rec: 04/09/20 12:25 [facility] [id number]) Physical Therapy Assessment Assessment Summary Assessment pt brought in her own coconut oil and she found this very helpful and treatment did not cause any tissue irritation today. Muscle guarding is decreasing on the right side of the levator ani. Began EMG biofeedback today and increased contractions to 10 second holds in supine. Gave pt info on the [employer] for help decreasing pain with intercourse Physical Therapy Plan Frequency and Duration Frequency of Treatment 1x/Week Duration of Treatment 8 Plan of Care Start Date 03/24/20 Plan of Care End Date 05/19/20 Therapeutic Interventions Therapeutic Interventions Home Exercise Program,Manual Therapy,Neuromuscular Re- education,Self-Care/Home Management,Soft Tissue Mobilization,Therapeutic Exercises Modalities Biofeedback Next Visit Focus/Plan Next Note Type Treatment Note Next Visit Plan Continue tx with coconut oil, continue EMG biofeedback next visit
--- NOTE | 2020-04-23 16:15 | PT.OTN ---
Current Diagnoses Pelvic muscle wasting (04/23/20) Unspecified dyspareunia (04/23/20) Physical Therapy Treatment Note PT-OP-A Visit Information Start: 03/24/20 12:46 Freq: Status: Active Protocol: Document 04/23/20 09:44 [facility] (Rec: 04/23/20 10:18 [facility] [id number]) Out-Patient Physical Therapy Visit Information Visit Information Visit Type Treatment Note Visit Start Time 09:00 Visit Stop Time 09:45 Total Visit Minutes 45 Visit Number 4 PT-OP-B Current Condition Start: 03/24/20 12:46 Freq: Status: Active Protocol: Document 03/24/20 12:56 [facility] (Rec: 03/24/20 13:13 [facility] [id number]) Current Condition History of Current Condition Onset Date 40 years ago Current Complaints vaginal pain with intercourse History of Current Condition Yamilex reports she has been experiecing pain with intercourse since her hysterectomy 40 years ago. She has been using estodial x 3-4 weeks now but prefers Premerin so may switch back to that. Yamilex reports that her and her have custody of their 8 year old grand daughter. They dont have intercourse often due to this. She doesn't use the estrodial every day. Pt reports It feel like there is scar tissue and it gets raw inside the right side of the vagina at the front of the pubic bone. 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 Pain began following the hysteroctomy. In 2011 she had the left hip replaced and this did effect positions that felt more compfortable to her during intercourse. She currently walks 4.5 miles per day every week day. Treatment Goals Patient/Caregiver Goals Goals include helping to reduce pain enabling Yamilex to be intimate with her without pain. Current Functional Impairments (Reported) Functional Limitations- Recreation/ pain with intercourse, limited Hobbies ROM after her left hip replacement which limits positions for intercourse PT-OP-C Subjective Start: 03/24/20 12:46 Freq: Status: Active Protocol: Document 04/23/20 09:44 [facility] (Rec: 04/23/20 10:18 [facility] [id number]) OP-PT Subjective Patient Comments Patient Comments Ordered premerin as she feels the estrodial isn't working that well. Juvia oil she has bee using and that hasn't stung her all all. She hasn't had intercourse since she was here last. PT-OP-F Manual Assessment Start: 03/24/20 12:46 Freq: Status: Active Protocol: Document 03/24/20 17:36 [facility] (Rec: 03/24/20 17:59 [facility] [id number]) Manual Assessments Soft Tissue Assessment Soft Tissue Mobility Assessment scar tissue tightness noted on the right side of urethra and in the pubococcygeus on the right from 9-12 MFR in the suprapubic fascia on the right side with tenderness to palpation PT-OP-I Pelvic Floor Start: 03/24/20 12:46 Freq: Status: Active Protocol: Document 03/24/20 17:36 [facility] (Rec: 03/24/20 17:59 [facility] [id number]) Pelvic Floor Assessment Urine Pelvic Floor Surgery No Pelvic Clock Pelvic Clock 12-3 Atrophy Pelvic Clock 9-12 Guarding,Tenderness Contraction Ability Voluntary Contraction Moderate Voluntary Relaxation Moderate Manual Muscle Testing Left 3 Manual Muscle Testing Right 3 Manual Muscle Testing Anterior 2 Manual Muscle Testing Posterior 4 Muscle Endurance (Seconds) 5 PT-OP-J Posture/Palpation/Skin Start: 03/24/20 12:46 Freq: Status: Active Protocol: Document 03/24/20 17:36 [facility] (Rec: 03/24/20 17:59 [facility] [id number]) Palpation Assessment Location suprapubic fascia R Palpation Location right side of the suprapubic fascia Palpation Findings Soft Tissue Tightness, Tenderness Palpation Details Myofascial restrictions felt in the suprapubic fascia on the right side of the abdominal wall, tenderness here to palpation pelvic clock 9-12 Palpation Location pelvic clock 9-12 in the pubococcygeus Palpation Findings Spasm,Muscle Guarding, Tenderness PT-OP-Q Treatments Start: 03/24/20 12:46 Freq: Status: Active Protocol: Document 04/23/20 09:44 [facility] (Rec: 04/23/20 10:18 [facility] [id number]) Therapeutic Exercises Supine Exercises 1 Supine Exercise Name pelvic floor isolation with imagery of the anterior pelvci floor Side bilateral Reps/Minutes 10 second hold time with 10 second relaxation Comments worked with EMG biofeedback today for neuroawareness of the pelvic floor Other Exercises supine stretch over ball Other Exercise Name supine stretch over ball Reps/Minutes 30 seconds Comments ball was supported by therapist while patient layed on her back over ball 3 Other Exercise Name stretch over the large ball to open up the abdominal wall Side bilateral Reps/Minutes hold 30 sec to a minute Manual Therapy Treatment Soft Tissue Mobilization 3 Body Location mobilizations of the bladder in a superior directions 2 Body Location internal release of the right pubococcygeus, 1 Body Location MFR over the anterior abdominal wall, right sided suprapubic fascia PT-OP-T Assessment and Plan Start: 03/24/20 12:46 Freq: Status: Active Protocol: Document 04/23/20 16:13 [facility] (Rec: 04/23/20 16:15 [facility] [email or web address]) Physical Therapy Assessment Assessment Summary Assessment no complaints of buring today with treatment. The pubococcygeus feels more relaxed now. Yamilex willard reports pain on the right side behind the pubic bone where I can feel scar tissue tightness from her hysterectomy Average contraction on EMG biofeedback is 17.5 uv with max of 31.9 uv Physical Therapy Plan Frequency and Duration Frequency of Treatment 1x/Week Duration of Treatment 8 Plan of Care Start Date 03/24/20 Plan of Care End Date 05/19/20 Therapeutic Interventions Therapeutic Interventions Home Exercise Program,Manual Therapy,Neuromuscular Re- education,Self-Care/Home Management,Soft Tissue Mobilization,Therapeutic Exercises Modalities Biofeedback Next Visit Focus/Plan Next Note Type Treatment Note Next Visit Plan Continue tx with coconut oil, continue EMG biofeedback next visit
--- NOTE | 2020-04-30 13:45 | PT.OTN ---
Current Diagnoses Pelvic muscle wasting (04/30/20) Unspecified dyspareunia (04/30/20) Physical Therapy Treatment Note PT-OP-A Visit Information Start: 03/24/20 12:46 Freq: Status: Active Protocol: Document 04/30/20 13:46 [facility] (Rec: 04/30/20 13:50 [facility] [id number]) Out-Patient Physical Therapy Visit Information Visit Information Visit Type Treatment Note Visit Start Time 13:45 Visit Stop Time 14:30 Total Visit Minutes 45 Visit Number 5 PT-OP-B Current Condition Start: 03/24/20 12:46 Freq: Status: Active Protocol: Document 03/24/20 12:56 [facility] (Rec: 03/24/20 13:13 [facility] [id number]) Current Condition History of Current Condition Onset Date 40 years ago Current Complaints vaginal pain with intercourse History of Current Condition Yamilex reports she has been experiecing pain with intercourse since her hysterectomy 40 years ago. She has been using estodial x 3-4 weeks now but prefers Premerin so may switch back to that. Yamilex reports that her and her have custody of their 8 year old grand daughter. They dont have intercourse often due to this. She doesn't use the estrodial every day. Pt reports It feel like there is scar tissue and it gets raw inside the right side of the vagina at the front of the pubic bone. 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 Pain began following the hysteroctomy. In 2011 she had the left hip replaced and this did effect positions that felt more compfortable to her during intercourse. She currently walks 4.5 miles per day every week day. Treatment Goals Patient/Caregiver Goals Goals include helping to reduce pain enabling Yamilex to be intimate with her without pain. Current Functional Impairments (Reported) Functional Limitations- Recreation/ pain with intercourse, limited Hobbies ROM after her left hip replacement which limits positions for intercourse PT-OP-C Subjective Start: 03/24/20 12:46 Freq: Status: Active Protocol: Document 04/30/20 13:46 [facility] (Rec: 04/30/20 13:50 [facility] [id number]) OP-PT Subjective Patient Comments Patient Comments pt has gotten the premeran, but has only used it for a few days. Patient Reported Progress Same PT-OP-F Manual Assessment Start: 03/24/20 12:46 Freq: Status: Active Protocol: Document 03/24/20 17:36 [facility] (Rec: 03/24/20 17:59 [facility] [email or web address]) Manual Assessments Soft Tissue Assessment Soft Tissue Mobility Assessment scar tissue tightness noted on the right side of urethra and in the pubococcygeus on the right from 9-12 MFR in the suprapubic fascia on the right side with tenderness to palpation PT-OP-I Pelvic Floor Start: 03/24/20 12:46 Freq: Status: Active Protocol: Document 03/24/20 17:36 [facility] (Rec: 03/24/20 17:59 [facility] [email or web address]) Pelvic Floor Assessment Urine Pelvic Floor Surgery No Pelvic Clock Pelvic Clock 12-3 Atrophy Pelvic Clock 9-12 Guarding,Tenderness Contraction Ability Voluntary Contraction Moderate Voluntary Relaxation Moderate Manual Muscle Testing Left 3 Manual Muscle Testing Right 3 Manual Muscle Testing Anterior 2 Manual Muscle Testing Posterior 4 Muscle Endurance (Seconds) 5 PT-OP-J Posture/Palpation/Skin Start: 03/24/20 12:46 Freq: Status: Active Protocol: Document 03/24/20 17:36 [facility] (Rec: 03/24/20 17:59 [facility] [email or web address]) Palpation Assessment Location suprapubic fascia R Palpation Location right side of the suprapubic fascia Palpation Findings Soft Tissue Tightness, Tenderness Palpation Details Myofascial restrictions felt in the suprapubic fascia on the right side of the abdominal wall, tenderness here to palpation pelvic clock 9-12 Palpation Location pelvic clock 9-12 in the pubococcygeus Palpation Findings Spasm,Muscle Guarding, Tenderness PT-OP-Q Treatments Start: 03/24/20 12:46 Freq: Status: Active Protocol: Document 04/30/20 13:45 [facility] (Rec: 05/07/20 15:19 [facility] [email or web address]) Manual Therapy Treatment Soft Tissue Mobilization 3 Body Location mobilizations of the bladder in a superior directions 2 Body Location internal release of the right pubococcygeus, 1 Body Location MFR over the anterior abdominal wall, right sided suprapubic fascia PT-OP-T Assessment and Plan Start: 03/24/20 12:46 Freq: Status: Active Protocol: Document 04/30/20 13:45 [facility] (Rec: 05/07/20 15:19 [facility] [id number]) Physical Therapy Assessment Assessment Summary Assessment No complaints of buring pain today however Yamilex continues to note pain with intercourse. She had only used the premarin cream a few times prior to intercourse so I encouraged her to used premarin for longer duration. She will check back in two weeks after using the premarin . Physical Therapy Plan Frequency and Duration Frequency of Treatment 1x/Week Duration of Treatment 8 Plan of Care Start Date 03/24/20 Plan of Care End Date 05/19/20 Therapeutic Interventions Therapeutic Interventions Home Exercise Program,Manual Therapy,Neuromuscular Re- education,Self-Care/Home Management,Soft Tissue Mobilization,Therapeutic Exercises Modalities Biofeedback Next Visit Focus/Plan Next Note Type Treatment Note Next Visit Plan Continue tx with coconut oil, continue EMG biofeedback next visit
--- NOTE | 2020-07-14 13:23 | PT.OPDS ---
Current Diagnoses Pelvic muscle wasting (04/30/20) Unspecified dyspareunia (04/30/20) Visit Care Team Role Provider Type Henrietta Parry MD Primary Care Provider Physician Specialty: Family Practice Address: [address] [place] [address], [place], [address] Email: [email or web address] Leila Stewart MD Attending Provider Physician Referring Provider Specialty: INSPECTOR AND MENDER Address: [address] [place] [address], [id number] Email: Visit Number Visit Number 5 Discharge Summary PT-OP-B Current Condition Start: 03/24/20 12:46 Freq: Status: Active Protocol: Document 03/24/20 12:56 [facility] (Rec: 03/24/20 13:13 [facility] [id number]) Current Condition History of Current Condition Onset Date 40 years ago Current Complaints vaginal pain with intercourse History of Current Condition Yamilex reports she has been experiecing pain with intercourse since her hysterectomy 40 years ago. She has been using estodial x 3-4 weeks now but prefers Premerin so may switch back to that. Yamilex reports that her and her have custody of their 8 year old grand daughter. They dont have intercourse often due to this. She doesn't use the estrodial every day. Pt reports It feel like there is scar tissue and it gets raw inside the right side of the vagina at the front of the pubic bone. 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 Pain began following the hysteroctomy. In 2011 she had the left hip replaced and this did effect positions that felt more compfortable to her during intercourse. She currently walks 4.5 miles per day every week day. Treatment Goals Patient/Caregiver Goals Goals include helping to reduce pain enabling Yamilex to be intimate with her without pain. Current Functional Impairments (Reported) Functional Limitations- Recreation/ pain with intercourse, limited Hobbies ROM after her left hip replacement which limits positions for intercourse PT-OP-C Subjective Start: 05/18/20 12:46 Freq: Status: Active Protocol: Document 04/30/20 13:46 [facility] (Rec: 04/30/20 13:50 [facility] [id number]) OP-PT Subjective Patient Comments Patient Comments pt has gotten the premeran, but has only used it for a few days. Patient Reported Progress Same PT-OP-F Manual Assessment Start: 03/24/20 12:46 Freq: Status: Active Protocol: Document 03/24/20 17:36 [facility] (Rec: 03/24/20 17:59 [facility] [email or web address]) Manual Assessments Soft Tissue Assessment Soft Tissue Mobility Assessment scar tissue tightness noted on the right side of urethra and in the pubococcygeus on the right from 9-12 MFR in the suprapubic fascia on the right side with tenderness to palpation PT-OP-I Pelvic Floor Start: 03/24/20 12:46 Freq: Status: Active Protocol: Document 03/24/20 17:36 [facility] (Rec: 03/24/20 17:59 [facility] [email or web address]) Pelvic Floor Assessment Urine Pelvic Floor Surgery No Pelvic Clock Pelvic Clock 12-3 Atrophy Pelvic Clock 9-12 Guarding,Tenderness Contraction Ability Voluntary Contraction Moderate Voluntary Relaxation Moderate Manual Muscle Testing Left 3 Manual Muscle Testing Right 3 Manual Muscle Testing Anterior 2 Manual Muscle Testing Posterior 4 Muscle Endurance (Seconds) 5 PT-OP-J Posture/Palpation/Skin Start: 03/24/20 12:46 Freq: Status: Active Protocol: Document 03/24/20 17:36 [facility] (Rec: 03/24/20 17:59 [facility] [email or web address]) Palpation Assessment Location suprapubic fascia R Palpation Location right side of the suprapubic fascia Palpation Findings Soft Tissue Tightness, Tenderness Palpation Details Myofascial restrictions felt in the suprapubic fascia on the right side of the abdominal wall, tenderness here to palpation pelvic clock 9-12 Palpation Location pelvic clock 9-12 in the pubococcygeus Palpation Findings Spasm,Muscle Guarding, Tenderness PT-OP-T Assessment and Plan Start: 03/24/20 12:46 Freq: Status: Active Protocol: Document 07/14/20 13:22 [facility] (Rec: 07/14/20 13:23 [facility] [email or web address]) Physical Therapy Assessment Assessment Summary Assessment Yamilex reports she is continuing with her stretches and home exercises. She is ready to be DC from PT at this time. Physical Therapy Plan Discharge Physical Therapy Discharge Reasons Patient Request Discharge Comments Pt is working on her home exercise program and ready to DC
== END 2020-07-15 13:08 ==
LOC: PHYS 13:45
PROVIDERS: PCP Family Medicine; Referring Provider Obstetrics & Gynecology; Visit Provider Obstetrics & Gynecology
DX: N94.10 Unspecified dyspareunia (principal); N81.84 Pelvic muscle wasting
CPT/HCPCS: 97110; 97140; 97161; 97535

== ENCOUNTER → 2021-11-13 12:49 | Outpatient (CLI) | payer MEDICARE, SELFPAY ==
[2021-11-13 15:13] LABS: Cholesterol 275 mg/dL (140-199); Glucose 95 mg/dL (80-110); Triglycerides 111 mg/dL (35-150)
[2021-11-13 15:24] LABS: HDL Cholesterol 145 mg/dL (40-60); LDL Cholesterol Calculated 108 mg/dL (<100)
== END ==
PROVIDERS: PCP Family Medicine; Referring Provider Family Medicine; Visit Provider Family Medicine
DX: Z13.9 Encounter for screening, unspecified (principal)
CPT/HCPCS: 36415; 80061; 82947

== ENCOUNTER → 2022-04-06 12:45 | Outpatient (CLI) | payer MEDICARE, SELFPAY ==
--- NOTE | 2022-04-06 | DI.MG.S_ITS ---
BILATERAL DIGITAL SCREENING MAMMOGRAM 3D/2D WITH CAD: 04/06/2022 CLINICAL: Routine screening. Comparison is made to exams dated: 01/01/2019 mammogram, 03/01/2017 mammogram, and 02/07/2015 mammogram - [facility]. The tissue of both breasts is heterogeneously dense. This may lower the sensitivity of mammography. Current study was also evaluated with a Computer Aided Detection (CAD) system. There are benign calcifications in both breasts. No significant masses, calcifications, or other findings are seen in either breast. There has been no significant interval change. IMPRESSION: BENIGN There is no mammographic evidence of malignancy. A 1 year screening mammogram is recommended. This exam was interpreted at Station ID: [id number]. NOTE: For mammograms, a report in lay terms will be sent to the patient. Approximately 15% of breast malignancies will not be visualized mammographically. In the management of a palpable breast mass, a negative mammogram must not discourage biopsy of a clinically suspicious lesion. Electronically Signed By: Tera velázquez/conchis:04/06/2022 13:08:23 letter sent: Normal Exam ACR BI-RADS Category 2: Benign Finding(s) [id number]
== END ==
PROVIDERS: PCP Family Medicine; Referring Provider Family Medicine; Visit Provider Family Medicine
DX: Z12.31 Encounter for screening mammogram for malignant neoplasm of breast (principal)
CPT/HCPCS: 77063; 77067

== ENCOUNTER → 2022-12-29 08:42 | Outpatient (CLI) | payer MEDICARE, SELFPAY ==
--- NOTE | 2022-12-29 08:43 | DI.US.S_ITS ---
PROCEDURE: US ABDOMEN LIMITED INDICATIONS: RUQ PAIN; POSSIBLE VENTRAL HERNIA TECHNIQUE: Real-time scanning was performed of the abdominal and retroperitoneal organs, with image documentation. COMPARISON: None. FINDINGS: Liver: Liver is normal in size and homogeneous in echotexture. Gallbladder: Unremarkable. Biliary ducts: Intrahepatic bile ducts are non-dilated. Extrahepatic bile duct caliber measures 5 mm. Normal is 6-7 mm or less in diameter, or 10 mm or less post-cholecystectomy. Pancreas: Visualized portions of the pancreas are sonographically normal. Miscellaneous: No right upper quadrant hernia. IMPRESSION: No right upper quadrant hernia or other pathology to explain the patient's pain. Dictated by: Jonathon Seaman M.D. on 12/29/2022 at 10:25 Approved by: Jonathon Seaman M.D. on 12/29/2022 at 10:26
== END ==
PROVIDERS: PCP Family Medicine; Referring Provider Physician Assistant; Visit Provider Physician Assistant
DX: R10.11 Right upper quadrant pain (principal)
CPT/HCPCS: 76705

== ENCOUNTER 2023-08-03 05:26 | Emergency (ER) | payer MEDICARE, SELFPAY ==
--- NOTE | 2023-08-03 05:28 | ED.GENADULT ---
HPI - General Adult General Chief complaint: Skin/Abscess/Foreign Body Stated complaint: stung by wasp and eyes are swelling Time Seen by Provider: 08/03/23 05:27 History of Present Illness HPI narrative: 78-year-old female nonsmoker presents for evaluation of increased swelling on her forehead. She was out for a hike yesterday morning and was stung by a flying insect developed pain and rather impressive amount of swelling on her forehead. She denied any trouble with tongue, lip or throat swelling, no difficulty in breathing and no widespread rash. No GI symptoms such as vomiting or diarrhea. She is here today because though the intensity of the swelling of her forehead as seemed to minimize it is now spread down and she has some puffiness of her eyelids. She called the nursing hotline and was instructed to present to the emergency department Related Data Previous Rx's Medication Instructions Recorded pantoprazole 20 mg tablet,delayed 20 mg PO DAILY PRN Acid Reflux #90 06/16/21 release (Protonix) tabs estradiol 0.05 mg/24 hr weekly 1 patch transdermal QWEEK #12 ea 03/15/23 transdermal patch acyclovir 400 mg tablet See Rx Instructions .Route 04/01/23 .COMPLEX #90 tabs Allergies Allergy/AdvReac Type Severity Reaction Status Date / Time codeine [CODEINE] AdvReac Mild nausea & Verified 04/14/21 09:48 terrible nightmares hydrocodone [HYDROCODONE] AdvReac Mild Nausea/vomi Verified 04/14/21 09:48 ting oxycodone AdvReac Mild Vomiting Verified 04/14/21 09:48 Review of Systems Review of Systems Narrative: GENERAL: Denies chills, fatigue, malaise, fever, sweats. HEENT: See HPI RESPIRATORY: Denies dyspnea, cough, wheezing, hemoptysis, sputum. CARDIOVASCULAR: Denies chest pain, palpitations, orthopnea, edema, GASTROINTESTINAL: Denies nausea, vomiting, abdominal pain, diarrhea, constipation, melena. : Denies dysuria, frequency, incontinence, hematuria, urinary retention. MUSCULOSKELETAL: denies weakness, joint pain, or bony pain SKIN: see HPI NEUROLOGIC: Denies weakness, headache, numbness, change in speech, confusion, seizures, incoordination. PSYCHIATRIC: No concerning psychosocial issues. 12 point review of systems is negative except for those stated above Patient History Medical History (Updated 08/03/23 @ 05:38 by Donald Pardo DO) Ankle fracture, right (1967) Arthritis Basal cell carcinoma (BCC) of skin of nose (2005) Chicken pox (~7) Colon polyps (04/2005) Fibroids (2001) Foot pain (2014) Herpes (1974) Measles (~1956) Mumps Precancerous skin lesion Rheumatic fever (1949) Tubular adenoma of colon (04/2005) Wears glasses Surgical History Anesthesia History of basal cell carcinoma (BCC) excision (2005) History of colonoscopy with polypectomy (04/2005) History of episiotomy (1964) History of hip replacement (08/30/12) History of tonsillectomy Status post hysterectomy (2001) Status post knee surgery (04/14/15) Family History Brother Colon cancer Type 2 diabetes mellitus Sister Age: 82 Non-Hodgkins lymphoma Grandmother Stroke Mother Diabetes mellitus Stroke Family/Other Drowning Father Cirrhosis of liver Social History marital status: household members: family lives independently: Yes caregiver/support person: No housing: house Smoking Status: Never smoker second hand exposure: No alcohol intake: current substance use type: does not use Smoking Status: Never smoker Exam Narrative Exam Narrative: GEN: AOx3 and in mild distress HEAD: moderate swelling to forehead, no induration or fluctuance, very minimal serous drainage centrally located at the hairline, this is where patient says she was stung, minimal swelling to upper lids EYES: Pupils are equal, round, and reactive to light and accommodation. Extraoccular muscles are intact bilaterally. There is no subconjunctival hemorrhage or exudate. ENT: No tongue or lip swelling, airway patent, no throat swelling CHEST: Lungs are clear to auscultation bilaterally and free of wheezes, rales, or rhonchi. Heart rate is regular rhythm, there are no murmurs, clicks, rubs, or gallops. There is no chest wall tenderness. ABD: Abdomen is soft and nontender. There is no guarding or rebound. Bowel sounds are normal in all 4 quadrants. There is no mass or organomegaly. EXT: Full painless ROM of all extremities with no loss of sensation or strength. SKIN: Warm, pink, and dry. No erythema or rash Initial Vital Signs Initial Vital Signs: Vital Signs Temperature 97.4 F L 08/03/23 05:31 Pulse Rate 111 H 08/03/23 05:31 Respiratory Rate 18 08/03/23 05:31 Blood Pressure 165/90 H 08/03/23 05:31 Pulse Oximetry 96 08/03/23 05:31 Oxygen Delivery Method Room Air 08/03/23 05:31 Course Vital Signs Vital signs: Vital Signs - 8 hr 08/03/23 05:31 Temperature 97.4 F L Pulse Rate 111 H Respiratory Rate 18 Blood Pressure 165/90 H Pulse Oximetry 96 Oxygen Delivery Method Room Air Medical Decision Making [facility] Narrative Medical decision making narrative: [78] year old patient presents with swelling after bee sting Multiple etiologies for patient's symptoms considered including, but not limited to: [Allergic reaction versus local reaction and gravity dependent edema versus infection versus other] Prior Charts reviewed in our EMR Primary Historian: patient History and physical exam are reassuring, she was stung yesterday and had a large amount of firm swelling high upon her forehead. That has improved significantly and now she has softened swelling that was including more of her forehead and involving some of her upper eyelids. She has no systemic complaints, no tenderness or drainage, no induration or fluctuance to suggest an infectious process. Anaphylaxis and worsening reaction considered but thought less likely. This is most likely an evolution of a localized reaction with softening edema that is being drawn down in a gravity dependent fashion. Patient given return precautions. Findings and discharge diagnosis discussed with patient/family followed by verbalization of understanding Return precautions discussed with patient/family whom verbalize understanding of diagnosis and plan Discharge Plan Departure Patient Disposition: Home Clinical Impression: Local reaction to bee sting Instructions: DI for Insect Bites and Stings Activity Restrictions/Additional Instructions: *You have been diagnosed with [localized reaction to insect sting] *What to do: *Please continue to take your regular medications as directed. [ *Please follow up with your primary care provider in 2-3 days, call for an appointment. Let them know you were seen in the Emergency Department and that we ask that you be seen in follow up. We will electronically transmit a record of today's note if your PCP is in our system *If you do not have a primary care provider please contact the [facility] Resource line at [phone]. They will ask some questions about your medical history and help get you set up with a doctor in the community. *Return to Emergency Department if you should have any new, worsening or concerning symptoms, such as [trouble swallowing, trouble breathing, vomiting or diarrhea, hives or widespread rash Prescriptions: No Action pantoprazole [Protonix] 20 mg tablet,delayed release (DR/EC) 20 mg PO DAILY PRN (Reason: Acid Reflux) Qty: 90 0RF estradiol 0.05 mg/24 hr patch weekly 1 patch Transdermal QWEEK Qty: 12 1RF acyclovir 400 mg tablet See Rx Instructions .ROUTE .COMPLEX Qty: 90 0RF Dose Instruction: TAKE 1 TABLET BY MOUTH 3 TIMES DAILY NEEDED FOR VAGINAL OUTBREAK Rx Instructions: TAKE 1 TABLET BY MOUTH 3 TIMES DAILY NEEDED FOR VAGINAL OUTBREAK Referrals: Henrietta Parry MD [Primary Care Provider] - Stand Alone Forms: Patient Portal/API
[2023-08-03 05:31] VITALS: BP 165/90; PULSE 111; RESP 18; TEMP 36.3; O2SAT 96; BMI 22.1
== END 2023-08-03 05:40 | disposition home or self-care (01) ==
PROVIDERS: Emergency Provider Emergency Medicine; PCP Family Medicine
DX: T63.441A Toxic effect of venom of bees, accidental (unintentional), initial encounter (principal)
CPT/HCPCS: 99281

== ENCOUNTER → 2024-05-19 10:04 | Outpatient (CLI) | payer MEDICARE, SELFPAY ==
[2024-05-19 10:41] LABS: Add Manual Diff / Slide Review NO; Basophils Absolute Auto 0 /uL (0-100); Eosinophils Absolute Auto 100 /uL (0-450); Eosinophils Percent Auto 2.8 % (2-4); Hematocrit 39.5 % (36-46); Hemoglobin 13.3 g/dL (12.0-16.0); Lymphocytes Absolute Auto 1000 /uL (1100-4500); Lymphocytes Percent Auto 21.8 % (25-40); Mean Corpuscular HGB Conc 33.7 % (30-36); Mean Corpuscular Hemoglobin 29.2 PG (26-34); Mean Corpuscular Volume 86.6 fL (80-100); Monocytes Absolute Auto 400 /uL (0-900); Monocytes Percent Auto 9.2 % (3-14); Neutrophils Absolute Auto 3000 /uL (1500-7000); Neutrophils Percent Auto 65.2 % (50-75); Platelet Count 268 X10^3/uL (150-400); Red Blood Cell Count 4.56 X10^6/uL (4.0-5.2); Red Cell Distribution Width 13.7 % (11.6-14.8); White Blood Cell Count 4.6 X10^3/uL (4.5-11.0)
[2024-05-19 10:51] LABS: Hemoglobin A1C% w Est Avg Glu 5.3 % (4.0-6.0)
[2024-05-19 11:12] LABS: Alanine Aminotransferase 23 IU/L (<35); Albumin 4.4 g/dL (3.5-5.0); Albumin Globulin Ratio 1.6 (1.0-2.8); Alkaline Phosphatase 69 U/L (38-126); Aspartate Aminotransferase 24 IU/L (14-36); BUN Creatinine Ratio 28.8 (6-22); Bilirubin Total 0.7 mg/dL (0.2-1.3); Blood Urea Nitrogen 19 mg/dL (7-17); Calcium 9.2 mg/dL (8.4-10.2); Carbon Dioxide 32 mmol/L (22-32); Chloride 104 mmol/L (98-107); Cholesterol 279 mg/dL (140-199); Estimated Glomerular Filt Rate > 60 mL/min (>60); Globulin 2.7 g/dL (1.7-4.1); Glucose 98 mg/dL (80-110); HEMOLYSIS < 15 (0-50); Potassium 4.4 mmol/L (3.4-5.1); Sodium 139 mmol/L (137-145); Total Protein 7.1 g/dL (6.3-8.2); Triglycerides 83 mg/dL (35-150)
[2024-05-19 11:21] LABS: HDL Cholesterol 161 mg/dL (40-60); LDL Cholesterol Calculated 101 mg/dL (<100)
== END ==
LOC: LAB 10:05
PROVIDERS: PCP Family Medicine; Referring Provider Family Medicine; Visit Provider Family Medicine
DX: Z00.00 Encounter for general adult medical examination without abnormal findings (principal); E78.5 Hyperlipidemia, unspecified; Z13.1 Encounter for screening for diabetes mellitus; Z83.3 Family history of diabetes mellitus
CPT/HCPCS: 36415; 80053; 80061; 83036; 85025

== ENCOUNTER → 2025-05-27 09:23 | Outpatient (CLI) | payer MEDICARE, SELFPAY ==
[2025-05-27 10:54] LABS: Cholesterol 295 mg/dL (140-199); Glucose 86 mg/dL (70-99); Triglycerides 94 mg/dL (35-150)
[2025-05-27 11:06] LABS: HDL Cholesterol 157 mg/dL (40-60)
== END ==
PROVIDERS: PCP Family Medicine; Referring Provider Family Medicine; Visit Provider Family Medicine
DX: Z13.1 Encounter for screening for diabetes mellitus (principal); Z83.3 Family history of diabetes mellitus
CPT/HCPCS: 36415; 80061; 82947

== ENCOUNTER → 2025-06-03 15:25 | Outpatient (CLI) | payer MEDICARE, SELFPAY ==
--- NOTE | 2025-06-03 15:27 | DI.RAD.S_ITS ---
PROCEDURE: XR KNEE LT 3V INDICATIONS: pain TECHNIQUE: 3 views of the knee were acquired. COMPARISON: None. FINDINGS: Bones: No fractures or dislocations. No suspicious bony lesions. Soft tissues: No joint effusion. No suspicious soft tissue calcifications. IMPRESSION: No acute bony abnormality or significant effusion. Dictated by: Ray James M.D. on 06/03/2025 at 22:31 Approved by: Ray James M.D. on 06/03/2025 at 22:32
== END ==
PROVIDERS: PCP Family Medicine; Referring Provider Family Medicine; Visit Provider Family Medicine
DX: R52 Pain, unspecified (principal)
CPT/HCPCS: 73562

== ENCOUNTER → 2025-06-10 12:05 | Outpatient (CLI) | payer MEDICARE, SELFPAY ==
--- NOTE | 2025-06-10 13:03 | DI.MRI.S_ITS ---
PROCEDURE: MR KNEE LT WO CON INDICATIONS: knee pain TECHNIQUE: Noncontrast sagittal PD fast spin echo and T2 fast spin echo with fat saturation, sagittal 3-D FLASH with fat saturation; coronal T1 spin echo and PD fast spin echo with fat saturation, and axial PD fast spin echo with fat saturation through the knee. COMPARISON: [facility], MR, MR KNEE LT WO CON, 04/26/2019, 14:36. FINDINGS: Image quality: Excellent. Menisci: Possible radial tear of the posterior horn of the lateral meniscus (axial series 9, image 21), anterior and posterior horns of the medial meniscus are grossly intact. Cruciate ligaments: Mild increased T2 weighted signal with thinning of the mid and distal anterior cruciate ligament otherwise with intact fibers without complete tear or retraction. Posterior cruciate ligament is normal. Medial structures: Mild increased T2 weighted signal and thickening of the distal attachment of the semimembranosus, mild tendinopathy versus partial tear without complete tear or retraction. The medial collateral ligament appears intact. The meniscocapsular junction appears intact. Visualized portions of the pes anserinus tendons appear normal. No abnormal bursal fluid. Lateral structures: The lateral collateral ligament, long and short heads of the biceps femoris tendon appear intact. The popliteus tendon appears normal. Iliotibial band appears normal. Anterior structures: Mild tendinopathy distal quadriceps tendon. Patellar ligament is normal. Mild up to 5 mm lateral subluxation of the patella. The quadriceps and patellar tendons appear intact. No femoral trochlear dysplasia or ventral trochlear prominence. No edema in the infrapatellar fat pad. Bones and cartilage: Moderate diffuse cartilaginous thinning in the medial, lateral and patellofemoral compartments with areas of small up to 2 mm cartilage defects . Several 1 in 2 mm focal defects in the medial and lateral patellar facets and in the medial compartment progressed compared to the prior exam. Joint space: Mild knee joint effusion. No significant popliteal cyst. IMPRESSION: Progressed degenerative changes with diffuse cartilaginous thinning and several focal 1 and 2 mm cartilage defects. Possible radial tear posterior horn lateral meniscus. Mild injury/strain anterior cruciate ligament. Dictated by: Navin Huertas M.D. on 06/11/2025 at 11:14 Approved by: Navin Huertas M.D. on 06/11/2025 at 11:56
== END ==
LOC: MRI 12:05
PROVIDERS: PCP Family Medicine; Referring Provider Family Medicine; Visit Provider Family Medicine
DX: S83.512A Sprain of anterior cruciate ligament of left knee, initial encounter (principal); M25.462 Effusion, left knee; M25.562 Pain in left knee
CPT/HCPCS: 73721